=== PATIENT | female | born 1985 | race Asian ===

== ENCOUNTER 2017-08-17 15:50 | Emergency (ER) | payer SELFPAY ==
[2017-08-17 15:54] VITALS: BP 113/68; PULSE 87; BMI 19.3
[2017-08-17] MEDS ORDERED: ACETAMINOPHEN 325 MG TABLET (FP) ONE (16:20)
[2017-08-17] MEDS ORDERED: ACETAMINOPHEN 325 MG TABLET (FP) PO ONE (16:56)
[2017-08-17] MEDS ORDERED: OSELTAMIVIR PHOSPHATE 75 MG CAPSULE PO ONE (17:33)
--- NOTE | 2017-08-17 17:39 | PDOC ---
History of Present Illness - General History Source: Patient Exam Limitations: No Limitations - History of Present Illness Initial Comments: 08/17/17 18:16 The patient is a 32 year old female, with no significant past medical history, who presents to the emergency department with, three days of a cough, congestion , and sore throat. The patient reports congestion, headache, and emesis. She describes her emesis as white and acidic. She reports pain when swallowing and coughing. She describes her sore throat as a scratching sensation. 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 She is not up to date with her flu shot. She denies recent fevers, chills, headache or dizziness. She denies recent diarrhea or constipation. She denies recent dysuria, frequency, urgency or hematuria. She denies recent chest pain or shortness of breath. Allergies: NKA Past surgical history: None reported. Social history: Nonsmoker. Denies EtOH use and recreational drug use. <Terence Vyas - Last Filed: 08/17/17 18:16> <Reynaldo Mayorga - Last Filed: 08/20/17 08:45> - General Chief Complaint: Respiratory Stated Complaint: COUGH, FEVER Time Seen by Provider: 08/17/17 16:02 Past History <Terence Vyas - Last Filed: 08/17/17 18:16> - Travel Traveled outside of the country in the last 30 days: No Close contact w/someone who was outside of country & ill: No - Past Medical History Other medical history: DENIES - Suicide/Smoking/Psychosocial Hx Smoking History: Never smoked <Reynaldo Mayorga - Last Filed: 08/20/17 08:45> - Past Medical History Allergies/Adverse Reactions: Allergies Allergy/AdvReac Type Severity Reaction Status Date / Time No Known Allergies Allergy Verified 08/17/17 15:52 Home Medications: Ambulatory Orders Oseltamivir Phosphate [Tamiflu] 75 mg PO BID #10 capsule 08/17/17 Review of Systems - Review of Systems Able to Perform ROS?: Yes Is the patient limited Romanian proficient: Yes Constitutional: Yes: Other (Congestion.) HEENTM: Yes: Throat Pain Respiratory: Yes: Cough ABD/GI: Yes: Nausea, Vomiting Neurological: Yes: Headache <Terence Vyas - Last Filed: 08/17/17 18:16> - Review of Systems Constitutional: Yes: Symptoms Reported, See HPI Cardiac (ROS): No: Symptoms Reported, See HPI, Chest Pain, Edema, Irregular Heart Rate, Lightheadedness, Palpitations, Syncope, Chest Tightness, Other ABD/GI: No: Symptoms Reported, See HPI, Abdominal Distended, Abd. Pain w/ defecation, Blood Streaked Bowels, Constipated, Diarrhea, Difficulty Swallowing , Nausea, Poor Appetite, Poor Fluid Intake, Rectal Bleeding, Vomiting, Indigestion, Abdominal cramping, Tarry Stools, Other Musculoskeletal: No: Symptoms Reported, See HPI, Back Pain, Gout, Joint Pain, Joint Swelling, Muscle Pain, Muscle Weakness, Neck Pain, Joint Stiffness, Other Integumentary: No: Symptoms Reported, See HPI, Bruising, Change in Color, Change in Hair/Nails, Dryness, Erythema, Flushing, Lesions, Lumps, Pallor, Pruritus, Rash, Sweating, Other All Other Systems: Reviewed and Negative <Reynaldo Mayorga - Last Filed: 08/20/17 08:45> *Physical Exam - Vital Signs Last Vital Signs Temp Pulse Resp BP Pulse Ox 100 F H 87 18 113/68 100 08/17/17 18:05 08/17/17 15:50 08/17/17 15:50 08/17/17 15:50 08/17/17 15:50 - Physical Exam General Appearance: Yes: Nourished, Appropriately Dressed HEENT: positive: EOMI, JIMY, TMs Normal, Nasal Congestion, Other (Tenderness to percussion of sinuses.) Neck: positive: Supple, Other (Cervical lymphadenopathy. ) Respiratory/Chest: positive: Lungs Clear, Normal Breath Sounds Cardiovascular: positive: Regular Rhythm, Regular Rate Gastrointestinal/Abdominal: positive: Normal Bowel Sounds Musculoskeletal: positive: Normal Inspection Extremity: positive: Normal Capillary Refill, Normal Inspection, Normal Range of Motion Integumentary: positive: Normal Color, Dry, Warm Neurologic: positive: Fully Oriented (Alert and orientated x3.), Alert, Normal Mood/Affect, Normal Response, Motor Strength 5/5 <Terence Vyas - Last Filed: 08/17/17 18:16> - Vital Signs Last Vital Signs Temp Pulse Resp BP Pulse Ox 101.8 F H 87 18 113/68 100 08/17/17 15:50 08/17/17 15:50 08/17/17 15:50 08/17/17 15:50 08/17/17 15:50 <Reynaldo Mayorga - Last Filed: 08/20/17 08:45> ED Treatment Course - Medications Given in the ED: ED Medications Discontinued Medications Generic Name Dose Route Start Last Admin Trade Name Freq PRN Reason Stop Dose Admin Acetaminophen 650 mg 08/17/17 16:56 08/17/17 16:15 Tylenol - PO 08/17/17 16:57 650 mg NOW ONE Administration Oseltamivir Phosphate 75 mg 08/17/17 17:33 08/17/17 17:45 Tamiflu - PO 08/17/17 17:34 75 mg ONCE ONE Administration <Terence Vyas - Last Filed: 08/17/17 18:16> - RADIOLOGY Radiology Studies Ordered: Category Date Time Status CHEST PA & LAT [RAD] Stat Radiology 08/17/17 16:53 Taken - Medications Given in the ED: ED Medications Discontinued Medications Generic Name Dose Route Start Last Admin Trade Name Freq PRN Reason Stop Dose Admin Acetaminophen 650 mg 08/17/17 16:56 08/17/17 16:15 Tylenol - PO 08/17/17 16:57 650 mg NOW ONE Administration <Reynaldo Mayorga - Last Filed: 08/20/17 08:45> *DC/Admit/Observation/Transfer - Attestations Scribe Attestion: 08/17/17 18:21 Documentation prepared by Terence Vyas, acting as center medical specialist for Reynaldo Mayorga MD. <Terence Vyas - Last Filed: 08/17/17 18:16> - Discharge Dispostion Admit: No <Reynaldo Mayorga - Last Filed: 08/20/17 08:45> Diagnosis at time of Disposition: Viral syndrome, Influenza - Discharge Dispostion Disposition: HOME Condition at time of disposition: Stable - Prescriptions Prescriptions: Oseltamivir Phosphate [Tamiflu] 75 mg PO BID #10 capsule - Patient Instructions Printed Discharge Instructions: DI for Viral Syndrome Additional Instructions: Fluids, rest - Post Discharge Activity Forms/Work/School Notes: Back to Work
[2017-08-17] MEDS ORDERED: OSELTAMIVIR PHOSPHATE 75 MG CAPSULE ONE (17:51)
[2017-08-17 18:06] VITALS: TEMP 100
== END 2017-08-17 18:05 | disposition home or self-care (01) ==
LOC: FER 15:50
DX: J11.1 Influenza due to unidentified influenza virus with other respiratory manifestations (principal); B34.9 Viral infection, unspecified
CPT/HCPCS: 71046-TC; 99283-25